=== PATIENT | female | born 1940 | race Caucasian/White ===

== ENCOUNTER → 2017-07-07 | Outpatient (CLI) | payer MEDICARE, OTHER ==
--- NOTE | 2017-07-07 14:53 | PCVCIMAG ---
EXAM: VENOUS DUPLEX BOTH LOWER EXTREMITIES INDICATION: Leg pain and swelling. FINDINGS: Right leg: Mild to moderate amount of nonocclusive thrombus throughout the common femoral, main femoral, and popliteal veins. Calf veins are unremarkable where seen. Left leg: No thrombus in the common femoral, main femoral, or popliteal veins. These veins are compressible with phasic flow. Calf veins are unremarkable where seen. IMPRESSION: Mild/moderate amount of nonocclusive thrombus throughout the right common femoral, main femoral, and popliteal veins. This appears subacute to chronic. No evidence of deep venous thrombosis in the left lower extremity as detailed above. LOC:[id number]
== END | disposition home or self-care (01) ==
LOC: PCVCIMAG 13:41
PROVIDERS: ATTEND Nuclear Medicine Nuclear Cardiology
DX: I74.3 Embolism and thrombosis of arteries of the lower extremities (principal); I65.23 Occlusion and stenosis of bilateral carotid arteries; I25.10 Atherosclerotic heart disease of native coronary artery without angina pectoris; J44.9 Chronic obstructive pulmonary disease, unspecified; E11.9 Type 2 diabetes mellitus without complications; E78.5 Hyperlipidemia, unspecified; Z87.891 Personal history of nicotine dependence; Z86.718 Personal history of other venous thrombosis and embolism; Z95.1 Presence of aortocoronary bypass graft; Z95.5 Presence of coronary angioplasty implant and graft; Z96.643 Presence of artificial hip joint, bilateral; Z79.899 Other long term (current) drug therapy
CPT/HCPCS: 93970; G0463

== ENCOUNTER → 2017-07-16 | Outpatient (CLI) | payer MEDICARE, OTHER | END | disposition home or self-care (01) | LOC: PCVCCLINIC 13:42 | PROVIDERS: ATTEND Internal Medicine Cardiovascular Disease | DX: I72.9 Aneurysm of unspecified site (principal); I82.401 Acute embolism and thrombosis of unspecified deep veins of right lower extremity; I25.10 Atherosclerotic heart disease of native coronary artery without angina pectoris; I65.23 Occlusion and stenosis of bilateral carotid arteries; I10 Essential (primary) hypertension; E11.9 Type 2 diabetes mellitus without complications; J44.9 Chronic obstructive pulmonary disease, unspecified; R94.31 Abnormal electrocardiogram [ECG] [EKG]; Z87.891 Personal history of nicotine dependence; Z79.899 Other long term (current) drug therapy | CPT/HCPCS: 93005; G0463 ==

== ENCOUNTER → 2019-07-15 | Outpatient (CLI) | payer MEDICARE, OTHER ==
--- NOTE | 2019-07-15 11:46 | PCVCIMAG ---
EXAM: VENOUS DUPLEX BOTH LOWER EXTREMITIES INDICATION: Leg pain and swelling. History of right leg DVT. FINDINGS: Right leg: Mild chronic appearing nonocclusive thrombus upper main femoral vein. Mid and lower main femoral vein is patent. No thrombus in the common femoral or popliteal veins. Calf veins are unremarkable where seen. Left leg: No thrombus in the common femoral, main femoral, or popliteal veins. These veins are compressible with phasic flow. Calf veins are unremarkable where seen. 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 These findings are less prominent than 2017 study and there is been resolution of the previous thrombus in the right common femoral and popliteal veins. No evidence of deep venous thrombosis in the left lower extremity as detailed above. Incidental note is made of venous insufficiency/reflux throughout the right main femoral and popliteal veins with reflux duration of 2.5 seconds. If patient has significant persistence of right leg swelling consideration for intravascular ultrasound evaluation of the IVC and pelvic veins may be of value. LOC:[place] [id number]
== END | disposition home or self-care (01) ==
LOC: PCVCIMAG 09:16
PROVIDERS: ATTEND Internal Medicine Cardiovascular Disease
DX: I82.403 Acute embolism and thrombosis of unspecified deep veins of lower extremity, bilateral (principal); Z87.891 Personal history of nicotine dependence
CPT/HCPCS: 93970